=== PATIENT | male | born 1975 | race Hispanic/Latino ===

== ENCOUNTER 2017-01-20 07:32 | Emergency (ER) | payer SELFPAY ==
[~2017-01-20] VITALS: Ht 160 cm; Wt 61.4 kg
[~2017-01-20 07:32] MED LIST: MEDDOSEPAK PO; MOTRIN800 MG PO; NO; SILVADENE1 % EX
[2017-01-20] MEDS ORDERED: GENTAMICIN15 ML/BTL OS (07:52)
[2017-01-20] MEDS ORDERED: (None)3.5 GM OS (07:52)
[2017-01-20 07:58] VITALS: BP 133/87
== END 2017-01-20 08:11 | disposition home or self-care (01) | DRG 125 ==
LOC: ED 07:32
DX: S05.02XA Injury of conjunctiva and corneal abrasion without foreign body, left eye, initial encounter (principal); H10.9 Unspecified conjunctivitis; X58.XXXA Exposure to other specified factors, initial encounter

== ENCOUNTER 2017-09-06 15:06 | Observation (INO) | payer SELFPAY ==
[~2017-09-06] VITALS: Ht 160 cm; Wt 54.2 kg
[~2017-09-06 15:06] MED LIST changes: +(None)3.5 GM OS; +GENTAMICIN15 ML/BTL OS
--- NOTE | 2017-09-06 15:29 | NUR ---
PATIENT TO ROOM VIA EMS AND PHYSICIAN AT BEDSIDE FOR EVAL
[2017-09-06 15:44] LABS: HEMATOCRIT 33.3 % (39.0-50.0); HEMOGLOBIN 11.7 g/dl (14.0-18.0); IMMATURE GRANULOCYTES 0.5 % (0.0-1.0); MEAN CELL VOLUME 95.1 fL CALC (80.0-100.0); MEAN CORPUSCULAR HGB 33.4 pG CALC (26.0-32.0); MEAN CORPUSCULAR HGB CONC 35.1 g/L CALC (32.0-36.0); PLATELET COUNT 123 thou/uL (130-400); RED CELL DISTRI WIDTH 12.1 % (11.5-15.5)
[2017-09-06 15:50] LABS: ALBUMIN 4.1 g/dL (3.2-5.0); ALKALINE PHOSPHATASE 118 u/l (38-126); ANION GAP 23 (6-22 (CALC)); BILIRUBIN, TOTAL 1.2 mg/dL (0.0-1.4); BUN 6 mg/dL (9-20); BUN/CREATININE RATIO 13 (12-20 (CALC)); CALCIUM 8.9 mg/dL (8.4-10.2); CARBON DIOXIDE 19 mmol/l (22-30); CHLORIDE 97 mmol/l (95-108); CREATININE 0.5 mg/dL (0.7-1.3); ETHYL ALCOHOL 48 mg/dl (0-30); GFR > 60 ML/MIN (>=60 (CALC)); GFR FOR AFR.AMER. > 60 ML/MIN (>=60 (CALC)); GLUCOSE 110 mg/dL (75-110); POTASSIUM 2.9 mmol/l (3.5-5.1); SGOT/AST 81 u/l (17-59); SGPT/ALT 64 u/l (21-72); SODIUM 136 mmol/l (137-146); TOTAL PROTEIN 7.5 g/dL (6.3-8.2)
--- NOTE | 2017-09-06 15:57 | NUR ---
PT WITH LABS DRAWN, URINE COLLECTED, NOW WITH IVF AND DILANTIN INFUSING. NO DISTRESS, NO SEIZURE ACTIVITY. PT APPEARS INEBRIATED.
--- NOTE | 2017-09-06 16:08 | NUR ---
FAMILY BROUGHT IN FROM LOBBY. THEY STATE THAT HE DRANK LAST NIGHT, NOT TODAY. HIS BEHAVIOR WAS OFF TODAY, SO CALLED EMS.
[2017-09-06 16:18] LABS: BARBITURATES NEGATIVE (NEGATIVE); COCAINE NEGATIVE (NEGATIVE); METHADONE NEGATIVE (NEGATIVE); OXCYCODONE NEGATIVE (NEGATIVE); TETRAHYDROCANNABIONOL NEGATIVE (NEGATIVE); TRICYLIC ANTIDEPRESSANTS NEGATIVE (NEGATIVE)
[2017-09-06 17:17] LABS: MANUAL DIFFERENTIAL YES
[2017-09-06 17:32] LABS: BAND 18 % (0-8)
--- NOTE | 2017-09-06 17:39 | NUR ---
PT LEAVES AT THIS TIME FOR MARIA ISABEL FOR CT SCAN, SEEN INCONTINENT OF URINE.
--- NOTE | 2017-09-06 20:30 | NUR ---
PT RETURNED FROM [facility]
--- NOTE | 2017-09-06 20:44 | NUR ---
DR STOUT AT BEDSIDE. PT C/O NOT BEING ABLE TO SEE OUT OF L EYE. 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
--- NOTE | 2017-09-06 21:08 | NUR ---
FAMILY RELATED HX OF CHEMICAL EXPOSURE TO L EYE, VISION DIFFICULTY SINCE THAT TIME.
--- NOTE | 2017-09-06 21:20 | NUR ---
REPORT TO [facility]/SURG.
[2017-09-06 21:33] VITALS: BP 107/58
--- NOTE | 2017-09-06 21:33 | NUR ---
PT ARRIVED TO UNIT VIA STRETCHER WITH ER STAFF. STAFF ASSISTED TO BED X 2 PERSON. PT SWAZI SPEAKING ONLY; SIGNIFICANT OTHER AT BEDSIDE ALSO SWAZI SPEAKING ONLY. ANABELA, RN AT BEDSIDE TO INTERPRET. PT IS ALERT AND ORIENTED X 3 WITH FLIGHT OF IDEAS AND IMPULSIVENESS. SO STATES THAT HE RAN AWAY FROM HOME AND WAS FOUND RUNNING AIMLESSLY WHEN FRIEND FOUND HIM AND BROUGHT HIM HOME; PT UNABLE TO EXPLAIN WHY HE WAS RUNNING. SAFETY MEASURES IN PLACE INCLUDIND BED ALARM AND SEIZURE PRECUATIONS. CALL LIGHT SYSTEM REVIEWED AND IN REACH.
--- NOTE | 2017-09-06 21:34 | NUR ---
PT TO RM 270 WITH RN ON TELE.
--- NOTE | 2017-09-07 00:43 | NUR ---
PT RESTLESS IN BED; REMOVED TELE AND SEEMS CONFUSED. LIBRIUM GIVEN AT THIS TIME. SIGNIFICANT OTHER REMAINS WITH PT IS VERY ATTENTIVE TO HIS NEEDS. IV FLUIDS INFUSING WITHOUT DIFFICULTY. SAFETY MEASURES REMAIN IN PLACE.
--- NOTE | 2017-09-07 04:08 | NUR ---
PT ASLEEP AT THIS TIME WITH NO SIGNS OF DISTRESS NOTED. RESPIRATIONS EVEN AND UNLABORED ON ROOM AIR. CONDITION IS STABLE. SAFETY MEASURES REMAIN IN PLACE. CALL LIGHT WITHIN REACH.
[2017-09-07 04:35] VITALS: BP 106/63
[2017-09-07 04:53] LABS: ANION GAP 14 (6-22 (CALC)); BUN 7 mg/dL (9-20); BUN/CREATININE RATIO 15 (12-20 (CALC)); CALCIUM 8.6 mg/dL (8.4-10.2); CARBON DIOXIDE 25 mmol/l (22-30); CREATININE 0.4 mg/dL (0.7-1.3); GFR > 60 ML/MIN (>=60 (CALC)); GFR FOR AFR.AMER. > 60 ML/MIN (>=60 (CALC)); GLUCOSE 110 mg/dL (75-110); POTASSIUM 2.8 mmol/l (3.5-5.1); SODIUM 143 mmol/l (137-146)
[2017-09-07 04:55] LABS: CHLORIDE 107 mmol/l (95-108)
--- NOTE | 2017-09-07 05:45 | NUR ---
BED ALARM SOUNDED AND CALL LIGHT PUT ON BY FAMILY MEMBER. PT FOUND IN BED WITH SIGNIFICANT AMOUNT OF BLOOD ON SELF, FLOOR, AND WALL. IV SITE NOTED TO BE DISLODGED AND BLOOD DRAINING FROM SITE. PRESSURE APPLIED AND BLEEDING STOPPED. PT AT THIS TIME APPEARS VERY CONFUSED; DOES NOT SEEM TO UNDERSTAND THE SITUATION. PT CLEANSED AND HOUSE KEEPING IN TO CLEAN ROOM. NEW IV SITE STARTED AND IV FLUIDS RESTARTED. ATIVAN IV GIVEN FOR THE SECOND TIME THIS SHIFT. PT SEEMS CALMER NOW AND BED ALARM IN PLACE. WILL CONTINUE TO MONITOR.
[2017-09-07 08:08] VITALS: BP 109/68
--- NOTE | 2017-09-07 08:18 | NUR ---
PT.SLEEPING UPON ENTERING ROOM, V/S ASSESSED. AT BEDSIDE EATING BREAKFAST. PT.'S TRAY IS AT BEDSIDE, BUT HE HAS NOT EATEN, OFFERED BREAKFAST BUT APPEARED CONFUSED. LOW GRADE TEMP OF 99.9 OTHERWISE V/S NORMAL. PT.AWAKE TO MY VOICE, BUT BEGAN TO PULL ON BLOOD PRESSURE CUFF IT WAS TAKING HIS B/P. PT.WAS COUGHING MULTIPLE TIMES WHILE I WAS IN THE ROOM, BANANA BAG IS ALMOST COMPLETE.
--- NOTE | 2017-09-07 12:00 | NUR ---
PT.OFF UNIT FLOOR TO 2VXRAY. WILL CONTINUE k+ WHEN PT.RETURNS TO FLOOR.
--- NOTE | 2017-09-07 12:20 | NUR ---
PT.ARRIVED BACK TO FLOOR AND IS IN SHOWER AT THIS TIME.
[2017-09-07 12:41] VITALS: BP 112/79
[2017-09-07 13:35] LABS: INFLUENZA A NONE DETECTED (NONE DETECT); INFLUENZA B NONE DETECTED (NONE DETECT)
[2017-09-07 16:46] VITALS: BP 118/70
--- NOTE | 2017-09-07 16:50 | NUR ---
PT.HAVING SCANT AND SMALL BM'S AND URINATING IN THE BED. HE IS SLEEPING, BUT CAN WAKE AND FOLLOW COMMANDS, BUT REMAINS VERY WEAK AND VERY GROGGY. PT.MEDICATED WITH ANTIBIOTIC THERAPY AND LIBRIUM.
--- NOTE | 2017-09-07 17:59 | NUR ---
FAMILY IN WITH PT.HE IS SITTING UPRIGHT IN BED. HIS GIRLFRIEND FED HIM SUPPER, PT.IS VERY WEAK. HE WAS BARELY ABLE TO LIFT TYLENOL TO HIS MOUTH WHEN MEDICATED. FAMILY INTERPRETED, HE DENIES PAIN OR NAUSEA. POTASSIUM IV IS COMPLETE AT THIS TIME. INSTRUCTED PT.AND FAMILY TO CALL IF ANY NEEDS ARISE
[2017-09-07 19:00] VITALS: BP 118/71
--- NOTE | 2017-09-07 19:20 | NUR ---
REPORT RECEIVED FROM ORLANDO NICOLAS;PT RESTING IN BED WITH AT BEDSIDE;PT IS MOSTLY OF [place] SPEAKING DECENT;POC DISCUSSED WITH IGNACIA CRAWFORD DEPARTMENT SPECIALIST;SEIZURE PRECAUTIONS IN PLACE;PT EDUCATED TO CALL FOR ASSISTANCE IF NEEDED;BED IN THE LOWEST POSITION WITH CALL LIGHT IN REACH;WILL CONTINUE TO MONITOR
--- NOTE | 2017-09-07 22:00 | NUR ---
PT RESTING IN SEMI FOWLERS POSITION WITH AT BEDSIDE;PT VOICES NO COMPLAINTS OF PAIN OR DISCOMFORTS;RESPIRATIONS EVEN AND UNLABORED ON RA;ASSESSMENT COMPLETED;#22G TO RIGHT FOREARM FLUSHED AND PATENT;#20G TO RIGHT WRIST INFUSING NS @ 80ML/HR WELL;SKIN INTACT WITH SWELLING NOTED TO LEFT EYE,SIGNIFICANT OTHER STATES THAT IT IS FROM A CHEMICAL BURN WHICH HAPPENED WHILE THE PT WAS AT WORK;PT A&O X2, PT RE-ORIENTED TO PLACE AND REASON FOR ADMISSION;TEMP RE-CHECK AT 99.1,AC REMAINS LOWERED,BLANKETS REMOVED;TELE MONITOR IN PLACE;PT INCONTINENT AND EDUCATED ON THE NEED FOR A UA SAMPLE TO BE SENT TO LAB;URINAL PLACED AT BEDSIDE AND PT VERBALIZES UNDERSTANDING;SEIZURE PRECAUTIONS REMAIN IN PLACE;PT DENIES ANY OTHER NEEDS;SAFETY PRECAUTIONS REINFORCED WITH CALL LIGHT IN REACH;WILL CONTINUE TO MONITOR
[2017-09-07 23:59] VITALS: BP 120/70
--- NOTE | 2017-09-08 00:40 | NUR ---
PT APPEARS TO BE SLEEPING IN SEMI FOWLERS POSITION;NO S/S OF DISTRESS NOTED;SPOUSE AT BEDSIDE;RESPIRATIONS EVEN AND UNLABORED ON RA;SEIZURE PRECAUTIONS AND TELE MONITOR IN PLACE;IV FLUIDS INFUSING WELL TO LEFT WRIST;FALL PRECAUTIONS IN PLACE WITH CALL LIGHT IN REACH;WILL CONTINUE TO MONITOR
[2017-09-08 02:30] LABS: URINE BILIRUBIN - DIPSTICK NEGATIVE (NEGATIVE); URINE BLOOD DIPSTICK NEGATIVE (NEGATIVE); URINE COLOR YELLOW; URINE GLUCOSE - DIPSTICK NEGATIVE (NEGATIVE); URINE KETONE NEGATIVE (NEGATIVE); URINE LEUK ESTERASE NEGATIVE (NEGATIVE); URINE NITRITE - DIPSTICK NEGATIVE (Negative); URINE PROTEIN - DIPSTICK NEGATIVE (NEG-TRACE)
[2017-09-08 02:37] LABS: URINE CLARITY CLEAR
--- NOTE | 2017-09-08 04:00 | NUR ---
PT RESTING IN BED WITH SPOUSE AT BEDSIDE;VS OBTAINED BY IGNACIA CRAWFORD;PT DENIES ANY PAIN OR DISCOMFORTS;RESPIRATIONS EVEN AND UNLABORED ON RA;CURRENT TEMP 99.9;PT MEDICATED WITH TYLENOL 500MG PO,BLANKETS REMOVED;IV FLUIDS INFUSING WELL TO LEFT WRIST;TELE MONITOR AND SEIZURE PRECAUTIONS IN PLACE;CALL LIGHT IN REACH;WILL CONTINUE TO MONITOR
[2017-09-08 04:43] VITALS: BP 129/67
[2017-09-08 05:41] LABS: HEMATOCRIT 32.8 % (39.0-50.0); HEMOGLOBIN 11.3 g/dl (14.0-18.0); IMMATURE GRANULOCYTES 0.8 % (0.0-1.0); MEAN CELL VOLUME 95.9 fL CALC (80.0-100.0); MEAN CORPUSCULAR HGB CONC 34.5 g/L CALC (32.0-36.0); NEUT# 3.22 thou/uL (1.82-7.42); RED BLOOD COUNT 3.42 mill/uL (4.70-6.10); RED CELL DISTRI WIDTH 12.2 % (11.5-15.5)
[2017-09-08 05:55] LABS: ANION GAP 16 (6-22 (CALC)); BUN 6 mg/dL (9-20); BUN/CREATININE RATIO 15 (12-20 (CALC)); CALCIUM 8.8 mg/dL (8.4-10.2); CARBON DIOXIDE 22 mmol/l (22-30); CHLORIDE 104 mmol/l (95-108); CREATININE 0.4 mg/dL (0.7-1.3); GFR > 60 ML/MIN (>=60 (CALC)); GFR FOR AFR.AMER. > 60 ML/MIN (>=60 (CALC)); GLUCOSE 94 mg/dL (75-110); MAGNESIUM 1.3 mg/dL (1.6-2.3); POTASSIUM 3.4 mmol/l (3.5-5.1); SODIUM 140 mmol/l (137-146)
--- NOTE | 2017-09-08 07:28 | NUR ---
REPORT RECEIVED FROM JULIANA ESCOBAR. PT SITTING UPRIGHT IN BED. DENIES PAIN. REPORTING OF CONCERNS ENCOURAGED. CALL LIGHT REVIEWED AND IN REACH. PT'S AT BEDSIDE. FALL PRECAUTIONS REINFORCED. PT STATES UNDERSTANDING.
[2017-09-08 08:00] VITALS: BP 118/77
--- NOTE | 2017-09-08 09:42 | NUR ---
PT SHOWERED WITH ASSISTANCE OF . TOLERATED ACTIVITY WELL. DENIES PAIN. TREMORS NOTED, UNSTEADY GAIT. FALL PRECAUTIONS REINFORCED. LIBRIUM ADMINISTERED PER ORDER. MERNA FERGUSON IN TO SEE PT NOW.
[2017-09-08 11:13] VITALS: BP 128/66
[2017-09-08] MEDS ORDERED: LIBRIUM25 MG PO (12:20)
[2017-09-08] MEDS ORDERED: AUGMENTIN875TAB PO (12:29)
--- NOTE | 2017-09-08 12:30 | NUR ---
PT ASSISTED TO RESTROOM WITH 1 STAFF ASSIST. PT VEERS TO THE SIDE WHEN WALKING. PT HAD LARGE LOOSE STOOL. FALL PRECAUTIONS REVIEWED. CALL LIGHT WITHIN REACH.
--- NOTE | 2017-09-08 14:33 | NUR ---
Discharge instructions given. Patient verbalizes understanding of same. Discharged in stable condition via Wheelchair to Home with spouse. All belongings sent with pt.
== END 2017-09-08 14:49 | disposition home or self-care (01) | DRG 897 ==
LOC: ED 15:06 → ED-I 20:30 → ED 21:04 → MS2 21:05
PROVIDERS: Emergency Medicine; Nurse Practitioner Family; ADMIT Internal Medicine; ATTEND Internal Medicine
DX: F10.239 Alcohol dependence with withdrawal, unspecified (principal); F10.229 Alcohol dependence with intoxication, unspecified; E83.42 Hypomagnesemia; G40.89 Other seizures; E87.6 Hypokalemia; E86.0 Dehydration; J20.9 Acute bronchitis, unspecified; J02.0 Streptococcal pharyngitis; H54.62 Unqualified visual loss, left eye, normal vision right eye; S05.8X2S Other injuries of left eye and orbit, sequela; X58.XXXS Exposure to other specified factors, sequela; Y90.2 Blood alcohol level of 40-59 mg/100 ml; D64.9 Anemia, unspecified
CPT/HCPCS: G0378; J2060; J3475

== ENCOUNTER 2019-04-04 21:40 | Emergency (ER) | payer SELFPAY ==
[~2019-04-04] VITALS: Ht 160 cm; Wt 70.0 kg
[~2019-04-04 21:40] MED LIST changes: +AUGMENTIN875TAB PO; +LIBRIUM25 MG PO
[2019-04-04] MEDS ORDERED: KEFLEX500 M1 PO (22:15)
[2019-04-04] MEDS ORDERED: VALTREX1 GM PO (22:15)
[2019-04-04 22:48] VITALS: BP 122/81
== END 2019-04-04 22:48 | disposition home or self-care (01) | DRG 159 ==
LOC: ED 21:40
DX: B00.2 Herpesviral gingivostomatitis and pharyngotonsillitis (principal)

== ENCOUNTER 2020-09-04 19:09 | Inpatient (IN) | payer SELFPAY ==
[~2020-09-04] VITALS: Ht 160 cm; Wt 55.5 kg
[~2020-09-04 19:09] MED LIST changes: +KEFLEX500 M1 PO; +VALTREX1 GM PO
--- NOTE | 2020-09-04 19:20 | NUR ---
AMBULATED TO ROOM WITH STEADY GAIT.
--- NOTE | 2020-09-04 19:49 | NUR ---
SPOUSE AT BEDSIDE,PLANOF CARE DISCUSSED.
[2020-09-04 20:09] LABS: HEMATOCRIT 31.3 % (39.0-50.0); HEMOGLOBIN 10.8 g/dl (14.0-18.0); IMMATURE GRANULOCYTES 0.9 % (0.0-5.0); MEAN CELL VOLUME 93.4 fL CALC (80.0-100.0); MEAN CORPUSCULAR HGB 32.2 pG CALC (26.0-32.0); MEAN CORPUSCULAR HGB CONC 34.5 g/dL CAL (32.0-36.0); NEUT# 18.15 thou/uL (1.82-7.42); RED BLOOD COUNT 3.35 mill/uL (4.70-6.10); RED CELL DISTRI WIDTH 13.2 % (11.5-15.5)
[2020-09-04 20:28] LABS: ALKALINE PHOSPHATASE 159 u/l (38-126); BILIRUBIN, TOTAL 1.4 mg/dL (0.0-1.4); BUN 10 mg/dL (9-20); BUN/CREATININE RATIO 19 (12-20 (CALC)); CARBON DIOXIDE 19 mmol/l (22-30); CHLORIDE 104 mmol/l (95-108); CREATININE 0.5 mg/dL (0.7-1.3); GFR > 60 ML/MIN (>=60 (CALC)); GFR FOR AFR.AMER. > 60 ML/MIN (>=60 (CALC)); SGOT/AST 39 u/l (17-59); TOTAL PROTEIN 7.1 g/dL (6.3-8.2)
[2020-09-04 20:29] LABS: AMYLASE 70 u/l (30-110); LIPASE 38 u/l (23-300)
--- NOTE | 2020-09-04 20:30 | NUR ---
PATIENT RERSTING QUIETLY WITH SPOUSE,NO C/O
[2020-09-04 20:31] LABS: INTERNATIONAL NORMALIZED RATIO 1.4 RATIO (0.7-1.3); PROTHROMBIN TIME 13.8 SECONDS (9.0-12.5)
[2020-09-04 20:32] LABS: ANION GAP 12 (6-22 (CALC)); POTASSIUM 4.1 mmol/l (3.5-5.1); SODIUM 131 mmol/l (137-146)
--- NOTE | 2020-09-04 22:04 | NUR ---
physician at bedside too discuss findings
[2020-09-04 22:34] LABS: URINE BILIRUBIN - DIPSTICK NEGATIVE (NEGATIVE); URINE BLOOD DIPSTICK TRACE-INTACT (NEGATIVE); URINE COLOR YELLOW; URINE GLUCOSE - DIPSTICK NEGATIVE (NEGATIVE); URINE KETONE NEGATIVE (NEGATIVE); URINE LEUK ESTERASE NEGATIVE (NEGATIVE); URINE NITRITE - DIPSTICK POSITIVE (Negative); URINE PH 7.5 (4.5-8.0); URINE PROTEIN - DIPSTICK NEGATIVE (NEG-TRACE); URINE SPECIFIC GRAVITY 1.015
[2020-09-04 22:39] LABS: URINE BACTERIA FEW hpf; URINE RBC 0-2 RBC/hpf (0-5)
--- NOTE | 2020-09-04 22:52 | NUR ---
IV ABT. STARTED PER MD ORDER. PT. MADE AWARE OF ADMISSION, IN [place] LANGUAGE OF FAROESE BY ER STAFF.
--- NOTE | 2020-09-04 23:20 | NUR ---
Admission Note Report Given to: ADE PERRY Transported by: Wheelchair X Stretcher Transported with: X Nurse Transporter X Patent IV O2 Print Production Manager Location: ICU X MS2
--- NOTE | 2020-09-04 23:30 | NUR ---
PT. TAKEN TO NC FLOOR VIA STRETCHER, NO C/O.
[2020-09-04 23:32] VITALS: BP 109/64
--- NOTE | 2020-09-04 23:32 | NUR ---
Patient arrived to floor from ER via strecther with nurse at [id number]. Patient alert and oriented, estonian speaking, patient transfered from stretcher to bed. Patient denies any pain, sob, or distress at this time. Patient was oriented to room, Tv, call foley, lights, and bed. Assessment completed, interpreter and translator at bedside to assist with admission. Bed in lowest position, will continue to monitor.
[2020-09-05 04:00] VITALS: BP 110/60
[2020-09-05 05:54] LABS: HEMATOCRIT 30.6 % (39.0-50.0); HEMOGLOBIN 10.3 g/dl (14.0-18.0); IMMATURE GRANULOCYTES 0.8 % (0.0-5.0); MEAN CORPUSCULAR HGB CONC 33.7 g/dL CAL (32.0-36.0); NEUT# 18.61 thou/uL (1.82-7.42); RED BLOOD COUNT 3.22 mill/uL (4.70-6.10); RED CELL DISTRI WIDTH 13.3 % (11.5-15.5)
[2020-09-05 06:16] LABS: ALBUMIN 2.6 g/dL (3.2-5.0); ALKALINE PHOSPHATASE 129 u/l (38-126); ANION GAP 11 (6-22 (CALC)); BILIRUBIN, TOTAL 1.5 mg/dL (0.0-1.4); BUN 10 mg/dL (9-20); BUN/CREATININE RATIO 20 (12-20 (CALC)); CARBON DIOXIDE 20 mmol/l (22-30); CHLORIDE 108 mmol/l (95-108); CREATININE 0.5 mg/dL (0.7-1.3); GFR > 60 ML/MIN (>=60 (CALC)); GFR FOR AFR.AMER. > 60 ML/MIN (>=60 (CALC)); POTASSIUM 4.1 mmol/l (3.5-5.1); SGOT/AST 36 u/l (17-59); SODIUM 135 mmol/l (137-146); TOTAL PROTEIN 6.3 g/dL (6.3-8.2)
[2020-09-05 07:38] VITALS: BP 94/55
--- NOTE | 2020-09-05 08:08 | NUR ---
PT IS ALERT, ORIENTED X 3, RESTS IN THE BED IN NO APPARENT DISTRESS. PT STATES PAIN TO LEFT UPPER QUADRANT. BM TODAY.
--- NOTE | 2020-09-05 12:24 | NUR ---
PT PROVIDED NOON MEAL, EATING NOW. PT IS AMBULATORY IN ROOM TO BR NEEDED. PAIN TO LEFT ABDOMEN IS MINIMAL, NO REQUEST FOR PAIN MEDS.
[2020-09-05 15:05] VITALS: BP 129/66
--- NOTE | 2020-09-05 16:39 | NUR ---
PT GIVEN TORADOL 15 MG FOR FEVER OF 101.4. NO DISTRESS, PT CONTINUES AT REST IN THE BED.
--- NOTE | 2020-09-05 18:25 | NUR ---
RECHECK OF ELEVATED TEMP, NOW 99.2.
[2020-09-05 18:51] VITALS: BP 120/74
--- NOTE | 2020-09-05 20:00 | NUR ---
PATIENT RESTING IN BED AT THIS TIME-AWAKE ALERT AND ORIENTEDX3. PATIENT IS MOSTLY WOL[place] SPEAKING. STATES ONLY SLIGHT LEFT ABD/FLANK PAIN-NO PAIN MEDS AT THIS TIME. IVF NS PATENT AND INFUSING VIA LAC SITE AT 125CC/HR. SITE IS HEALTHY AT THIS TIME. AFEBRILE AT THIS TIME. LUNGS ARE CLEAR. ABD IS SOFT WITH BS PRESENT. PATIENT STATES THAT HE HAS BEEN HAVING DIARRHEA TODAY. DENIES ANY DIFFICULTY WITH URINATION. NO PERIPHERAL EDEMA NOTED AND PULSES ARE PALPABLE. SAFETY PRFECAUTIONS REINFORCED. CALL LIGHT IN REACH. WILL CONT TO MONITOR.
--- NOTE | 2020-09-05 23:10 | NUR ---
PATIENT RESTING IN BED WATCHING TV-PROVIDED WITH RAQUEL. ASUNCION MELO ORDERED. CALL LIGHT IN REACH. WILL CONT TO MONITOR.
[2020-09-06 04:20] VITALS: BP 129/75
--- NOTE | 2020-09-06 04:53 | NUR ---
PATIENT RESTING IN BED-AWAKE AND ALERT. NO COMPLAINTS-STATES NO MORE DIARRHEA THROUGH THE NIGHT. IVF NS PATENT AND INFUSING VIA LAC SITE. SITE REMAINS HEALTHY. TAKING PO FLJUIDS AND TOLERATING WELL. CALL LIGHT IN REACH. WILL CONT TO MONITOR.
[2020-09-06 06:22] LABS: HEMATOCRIT 30.2 % (39.0-50.0); MEAN CELL VOLUME 94.7 fL CALC (80.0-100.0); MEAN CORPUSCULAR HGB 31.3 pG CALC (26.0-32.0); MEAN CORPUSCULAR HGB CONC 33.1 g/dL CAL (32.0-36.0); RED BLOOD COUNT 3.19 mill/uL (4.70-6.10); RED CELL DISTRI WIDTH 13.1 % (11.5-15.5)
[2020-09-06 06:43] LABS: ANION GAP 10 (6-22 (CALC)); BUN 8 mg/dL (9-20); BUN/CREATININE RATIO 18 (12-20 (CALC)); CARBON DIOXIDE 19 mmol/l (22-30); CHLORIDE 107 mmol/l (95-108); CREATININE 0.5 mg/dL (0.7-1.3); GFR > 60 ML/MIN (>=60 (CALC)); GFR FOR AFR.AMER. > 60 ML/MIN (>=60 (CALC)); POTASSIUM 3.8 mmol/l (3.5-5.1); SODIUM 132 mmol/l (137-146)
[2020-09-06 07:17] VITALS: BP 127/70
--- NOTE | 2020-09-06 07:17 | NUR ---
PT LAYING IN BED. A&O X3. NO DISTRESS NOTED. PT REPORTS ABD PAIN TO LUQ RATING 5/10 DESCRIBED "ACHING". #20 LAC WITH SCHEDULED NS @ 125 ML/HR, IV HEALTHY AND PATENT. ASSESSMENT COMPLETED. DISCUSSED POC. CALL LIGHT IN REACH. CONTINUE TO MONITOR.
--- NOTE | 2020-09-06 12:00 | NUR ---
PT SITTING ON THE SIDE OF THE BED EATING LUNCH. REPORTS ABD IS BETTER. CALL LIGHT IN REACH. CONTNUE TO MONITOR.
[2020-09-06 18:44] VITALS: BP 144/83
--- NOTE | 2020-09-06 21:00 | NUR ---
PT MEDICATED ORDERS PROVIDE AND ASSESSMENT COMPLETED AT THIS TIME. PT DENIES ANY PAIN OR DISCOMFORT, DOES REPORT MILD TENDERNESS TO LUQ UPON PALPATION. LUNG SOUNDS ARE CLEAR AT THIS TIME. NO S/O DISTRESS NOTED. DENIES ANY OTHER NEEDS, CALL LIGHT AT SIDE AND PT ENCOURAGED TO CALL NEEDS ARISE.
--- NOTE | 2020-09-06 23:00 | NUR ---
IVF REPLENISHED AT THIS TIME. NO S/O DISTRESS NOTED. DENIES ANY NEEDS. CALL LIGHT AT SIDE.
--- NOTE | 2020-09-07 02:11 | NUR ---
PT APPEARS TO BE SLEEPING, NO S/O DISTRESS NOTED. CALL LIGHT AT SIDE.
[2020-09-07 04:25] VITALS: BP 129/72
--- NOTE | 2020-09-07 04:36 | NUR ---
PT MEDICATED FOR PAIN IN LUQ OF ABD. DENIES ANY OTHER NEEDS AT THIS TIME. ENCOURAGED HIM TO CALL NEEDS ARISE, CALL LIGHT AT SIDE.
[2020-09-07 04:47] LABS: HEMATOCRIT 29.7 % (39.0-50.0); HEMOGLOBIN 10.2 g/dl (14.0-18.0); MEAN CELL VOLUME 92.2 fL CALC (80.0-100.0); MEAN CORPUSCULAR HGB 31.7 pG CALC (26.0-32.0); MEAN CORPUSCULAR HGB CONC 34.3 g/dL CAL (32.0-36.0); RED BLOOD COUNT 3.22 mill/uL (4.70-6.10); RED CELL DISTRI WIDTH 12.6 % (11.5-15.5)
[2020-09-07 05:07] LABS: ALBUMIN 2.6 g/dL (3.2-5.0); ALKALINE PHOSPHATASE 132 u/l (38-126); ANION GAP 11 (6-22 (CALC)); BILIRUBIN, TOTAL 1.2 mg/dL (0.0-1.4); BUN 7 mg/dL (9-20); BUN/CREATININE RATIO 15 (12-20 (CALC)); CARBON DIOXIDE 22 mmol/l (22-30); CHLORIDE 104 mmol/l (95-108); CREATININE 0.5 mg/dL (0.7-1.3); GFR > 60 ML/MIN (>=60 (CALC)); GFR FOR AFR.AMER. > 60 ML/MIN (>=60 (CALC)); MAGNESIUM 1.2 mg/dL (1.6-2.3); POTASSIUM 3.5 mmol/l (3.5-5.1); SGOT/AST 41 u/l (17-59); SODIUM 133 mmol/l (137-146); TOTAL PROTEIN 6.1 g/dL (6.3-8.2)
--- NOTE | 2020-09-07 06:31 | NUR ---
PT WAS SLEEPING I ENTER ROOM AWOKE. DENIES ANY NEEDS. CALL LIGHT AT SIDE.
[2020-09-07 07:35] VITALS: BP 125/73
--- NOTE | 2020-09-07 07:55 | NUR ---
ASSESSMENT IS COMPLETED: IV SITE IS FREE FROM REDNESS OR EDEMA. HR IS REG,PULSES ARE STRONG X4, ABD IS SOFT WITH ACTIVE BS. BREATH SOUNDS ARE CLEAR,BILATERALLY. NO C/O PAIN VOICED.
[2020-09-07 11:36] VITALS: BP 122/62
--- NOTE | 2020-09-07 12:11 | NUR ---
PT IS RELAXING IN BED WITH NO DISTRESS NOTED. IV SITE IS FREE FROM REDNESS OR EDEAM.
--- NOTE | 2020-09-07 14:51 | NUR ---
PT IS RELAXING IN BED WITH NO DISTRESS NOTED. INQUIRED IF ANY PAIN VOICED "NO"
[2020-09-07 15:34] VITALS: BP 121/73
--- NOTE | 2020-09-07 15:48 | NUR ---
PT HAS A SLIGHT FEVER OF 99.9 UNDER THE COVERS. GAVE TORADOL NO C/O PAIN VOICED.
--- NOTE | 2020-09-07 16:00 | NUR ---
PT IS RELAXING IN BED WITH NO DISTRESS NOTED. IV SITE IS FREE FROM REDNESS ORE KARI
[2020-09-07 18:51] VITALS: BP 122/72
--- NOTE | 2020-09-07 21:26 | NUR ---
PT MEDICATED AND ASSESSMENT COMPLETED AT THIS TIME. ANTIBIOTIC THERAPY ADMINISTERED AT THIS TIME, TO 20RAC/SITE APPEARS HEALTHY, PT DENIES ANY PAIN AT IV SITE, ALSO DENIES PAIN TO ABD UPON PALPATION. OFFERED SNACK/DRINK, DENIED NEED AT THIS TIME. ENCOURAGED HIM TO CALL NEEDS ARISE, CALL LIGHT AT SIDE.
--- NOTE | 2020-09-08 01:12 | NUR ---
IVF REPLENISHED AT THIS TIME, PT SLEEPING, NO S/O DISTRESS NOTED AT THIS TIME.
[2020-09-08 04:56] LABS: HEMATOCRIT 28.8 % (39.0-50.0); MEAN CORPUSCULAR HGB 31.9 pG CALC (26.0-32.0); MEAN CORPUSCULAR HGB CONC 34.7 g/dL CAL (32.0-36.0); RED BLOOD COUNT 3.13 mill/uL (4.70-6.10); RED CELL DISTRI WIDTH 12.7 % (11.5-15.5)
[2020-09-08 05:18] VITALS: BP 137/76
[2020-09-08 05:20] LABS: ANION GAP 11 (6-22 (CALC)); BUN 9 mg/dL (9-20); BUN/CREATININE RATIO 18 (12-20 (CALC)); CARBON DIOXIDE 22 mmol/l (22-30); CHLORIDE 104 mmol/l (95-108); CREATININE 0.5 mg/dL (0.7-1.3); GFR > 60 ML/MIN (>=60 (CALC)); GFR FOR AFR.AMER. > 60 ML/MIN (>=60 (CALC)); POTASSIUM 3.8 mmol/l (3.5-5.1); SODIUM 133 mmol/l (137-146)
[2020-09-08 07:37] VITALS: BP 132/72
--- NOTE | 2020-09-08 09:30 | NUR ---
PT IS AWAKE, ALERT, ORIENTED X 3. LUNGS CLEAR,RA. PT DRINKING ORAL CONTRAST FOR CT ABDOMEN THIS MORNING, NO NAUSEA OR VOMITING. PT TEMP 100.0, PROVIDED TORADOL FOR SAME.
--- NOTE | 2020-09-08 13:00 | NUR ---
PT TO CT AND BACK, NO DISTRESS NOTED. PT DENIES DISCOMFORT, AMBULATORY IN ROOM NEEDED.
[2020-09-08 14:49] VITALS: BP 124/72
--- NOTE | 2020-09-08 18:14 | NUR ---
DR CLINTON CONSULTED ON PT, WILL ADD PCR TO LABS. PT WITH DIARRHEA X [address] SCAN READ, NO ACTION YET PER ITS FINDINGS.
[2020-09-08 20:00] VITALS: BP 140/82
--- NOTE | 2020-09-08 23:43 | NUR ---
PATIENT RESTING IN BED AT THIS TIME WITH EYES CLOSED. RESPS ARE EVEN AND UNLABORED. IVF PATENT AND INFUSING VIA RAC SITE ORDERED.CALL LIGHT IN REACH. WILL CONT TO MONITOR.
[2020-09-09 04:00] VITALS: BP 116/65; BP 133/78
--- NOTE | 2020-09-09 04:29 | NUR ---
PATIENT RESTING IN BED WITH NO COMPLAINTS AT THIS TIME. STOOL SPEC OBTAINED AND SENT TO LAB. IVF PATENT AND INFUSING VIA RAC SITE ORDERED. SAFETY PRECAUTIONS REINFORCED. CALL LIGHT IN REACH. WILL CONT TO MONITOR.
[2020-09-09 05:41] LABS: HEMATOCRIT 30.3 % (39.0-50.0); HEMOGLOBIN 10.3 g/dl (14.0-18.0); IMMATURE GRANULOCYTES 0.8 % (0.0-5.0); MEAN CELL VOLUME 92.7 fL CALC (80.0-100.0); MEAN CORPUSCULAR HGB 31.5 pG CALC (26.0-32.0); NEUT# 3.81 thou/uL (1.82-7.42); RED BLOOD COUNT 3.27 mill/uL (4.70-6.10); RED CELL DISTRI WIDTH 12.8 % (11.5-15.5)
[2020-09-09 06:03] LABS: ALBUMIN 2.7 g/dL (3.2-5.0); ALKALINE PHOSPHATASE 129 u/l (38-126); ANION GAP 11 (6-22 (CALC)); BILIRUBIN, TOTAL 0.9 mg/dL (0.0-1.4); BUN 7 mg/dL (9-20); BUN/CREATININE RATIO 15 (12-20 (CALC)); CARBON DIOXIDE 22 mmol/l (22-30); CHLORIDE 104 mmol/l (95-108); CREATININE 0.5 mg/dL (0.7-1.3); GFR > 60 ML/MIN (>=60 (CALC)); GFR FOR AFR.AMER. > 60 ML/MIN (>=60 (CALC)); POTASSIUM 3.9 mmol/l (3.5-5.1); SGOT/AST 39 u/l (17-59); SODIUM 134 mmol/l (137-146); TOTAL PROTEIN 6.4 g/dL (6.3-8.2)
[2020-09-09 07:47] VITALS: BP 106/56
--- NOTE | 2020-09-09 10:17 | NUR ---
PT AT REST IN THE BED, NO DISTRESS. PT AMBULATORY IN ROOM DESIRED. DIARRHEA AGAIN TODAY. LUNGS CLEAR, RA. NO DISTRESS.
--- NOTE | 2020-09-09 13:48 | NUR ---
PT HAS SHOWERED TODAY. PT AMBULATORY NEEDED, NO ACUTE DISTRESS.
[2020-09-09 14:50] VITALS: BP 127/77
--- NOTE | 2020-09-09 16:21 | NUR ---
PT CONTINUES BEFORE, NO CHANGE IN STATUS NOTED. NO COMPLAINT OF ABDOMINAL PAIN.
[2020-09-09 19:30] VITALS: BP 111/69
--- NOTE | 2020-09-09 20:45 | NUR ---
PT IN BED WITH EYES OPEN. ABLE TO VERBALIZE NEEDS. ROMANSH SPEAKING WITH CAPABILITY TO SPEAK SOME PAL[place] AND UNDERSTAND [place]. RESPIRATION ARE EVEN AND NON LABORED. DENIES PAIN OR DISCOMFORT. HEAD OF BED ELEVATED AND CALL LIGHT WITHIN REACH. WILL CONTINUE TO OBSERVE
--- NOTE | 2020-09-10 02:15 | NUR ---
PT IN BED WITH EYES CLOSED. NO S/S OF DISTRESS. MEDICATIONS GIVEN AND TOLERATED WELL. DENIES PAIN OR DISCOMFORT. CONTINUES ON IV ABT WITH NO ADVERSE SIDE EFFECTS NOTED. NACL 0.45 WUNNING AT KVO AND TOLERATING WELL. RESPIRATIONS ARE EVEN AND NON LABORED. CALL LIGHT WITHIN REACH. WILL CONTINUE TO OBSERVE.
[2020-09-10 04:00] VITALS: BP 104/57
--- NOTE | 2020-09-10 05:51 | NUR ---
PT IN BED WITH EYES CLOSED. NO S/S OF DISTRESS NOTED. EASILY AROUSED. cALL LIGHT WITHIN REACH.
[2020-09-10 06:12] LABS: HEMATOCRIT 30.3 % (39.0-50.0); HEMOGLOBIN 10.2 g/dl (14.0-18.0); MEAN CELL VOLUME 93.8 fL CALC (80.0-100.0); MEAN CORPUSCULAR HGB 31.6 pG CALC (26.0-32.0); MEAN CORPUSCULAR HGB CONC 33.7 g/dL CAL (32.0-36.0); RED BLOOD COUNT 3.23 mill/uL (4.70-6.10)
[2020-09-10 06:42] LABS: ANION GAP 11 (6-22 (CALC)); BUN 8 mg/dL (9-20); BUN/CREATININE RATIO 13 (12-20 (CALC)); CARBON DIOXIDE 24 mmol/l (22-30); CHLORIDE 104 mmol/l (95-108); CREATININE 0.6 mg/dL (0.7-1.3); GFR > 60 ML/MIN (>=60 (CALC)); GFR FOR AFR.AMER. > 60 ML/MIN (>=60 (CALC)); MAGNESIUM 1.4 mg/dL (1.6-2.3); POTASSIUM 3.7 mmol/l (3.5-5.1); SODIUM 135 mmol/l (137-146)
[2020-09-10 08:00] VITALS: BP 110/65
--- NOTE | 2020-09-10 09:00 | NUR ---
PT AWAKE, ALERT, ORIENTED X 3. NO COMPLAINT OF ABDOMINAL PAIN. DIARRHEA YESTERDAY.
[2020-09-10] MEDS ORDERED: KEFLEX500 MG PO (11:37)
--- NOTE | 2020-09-10 13:09 | NUR ---
PT HAS BEEN DISCHARGED TO HOME. PT VERBALIZED UNDERSTANDING OF DC INSTRUCTIONS, TAKEN BY WHEELCHAIR TO [facility]ENCH OUTSIDE OF ER. PT LEAVES [facility] IN STABLE CONDITION.
== END 2020-09-10 12:56 | disposition home or self-care (01) | DRG 690 ==
LOC: ED 19:09 → ED-I 22:30 → ED 22:50 → MS2 22:51
PROVIDERS: Nurse Practitioner; ADMIT Internal Medicine; ATTEND Internal Medicine
DX: N10 Acute pyelonephritis (principal); K76.6 Portal hypertension; K70.30 Alcoholic cirrhosis of liver without ascites; F10.20 Alcohol dependence, uncomplicated; R19.7 Diarrhea, unspecified; B96.1 Klebsiella pneumoniae [K. pneumoniae] as the cause of diseases classified elsewhere; Z20.822 Contact with and (suspected) exposure to COVID-19; Z88.6 Allergy status to analgesic agent
CPT/HCPCS: J3475; Q3014; Q9967

== ENCOUNTER 2022-03-14 18:50 | Emergency (ER) | payer SELFPAY ==
[~2022-03-14] VITALS: Ht 160 cm; Wt 57.0 kg
[2022-03-14] VITALS (12 sets, daily range): BP systolic 106–133; BP diastolic 68–89
[~2022-03-14 18:50] MED LIST changes: +KEFLEX500 MG PO
[2022-03-14 20:58] LABS: HEMATOCRIT 30.1 % (39.0-50.0); HEMOGLOBIN 10.7 g/dl (14.0-18.0); IMMATURE GRANULOCYTES 0.2 % (0.0-5.0); MEAN CELL VOLUME 94.4 fL CALC (80.0-100.0); MEAN CORPUSCULAR HGB 33.5 pG CALC (26.0-32.0); MEAN CORPUSCULAR HGB CONC 35.5 g/dL CAL (32.0-36.0); NEUT# 2.53 thou/uL (1.82-7.42); RED BLOOD COUNT 3.19 mill/uL (4.70-6.10)
[2022-03-14 21:01] LABS: ALKALINE PHOSPHATASE 163 u/l (38-126); ANION GAP 13 (6-22 (CALC)); BUN 5 mg/dL (9-20); BUN/CREATININE RATIO 9 (12-20 (CALC)); CARBON DIOXIDE 27 mmol/l (22-30); CHLORIDE 95 mmol/l (95-108); CPK 781 u/l (52-200); CREATININE 0.5 mg/dL (0.7-1.3); ETHYL ALCOHOL 267 mg/dl (0-30); GFR FOR AFR.AMER. > 60 ML/MIN (>=60 (CALC)); GFR OTHER RACES > 60 ML/MIN (>=60 (CALC)); LIPASE 198 u/l (23-300); MAGNESIUM 1.5 mg/dL (1.6-2.3); SODIUM 130 mmol/l (137-146)
[2022-03-14 21:12] LABS: ALBUMIN 3.8 g/dL (3.2-5.0); BILIRUBIN, TOTAL 1.4 mg/dL (0.0-1.4); SGOT/AST 142 u/l (17-59); TOTAL PROTEIN 7.7 g/dL (6.3-8.2)
[2022-03-14 22:53] LABS: URINE BILIRUBIN - DIPSTICK NEGATIVE (NEGATIVE); URINE BLOOD DIPSTICK NEGATIVE (NEGATIVE); URINE COLOR YELLOW; URINE GLUCOSE - DIPSTICK NEGATIVE (NEGATIVE); URINE KETONE NEGATIVE (NEGATIVE); URINE LEUK ESTERASE NEGATIVE (NEGATIVE); URINE PROTEIN - DIPSTICK NEGATIVE (NEG-TRACE); URINE SPECIFIC GRAVITY 1.015; URINE UROBILINOGEN - DIPSTICK 0.2 E.U./dL (0.2)
[2022-03-14 22:54] LABS: URINE NITRITE - DIPSTICK NEGATIVE (Negative)
[2022-03-14] MEDS ORDERED: IMODIUM2 MG PO (23:04)
== END 2022-03-14 23:45 | disposition home or self-care (01) | DRG 392 ==
LOC: ED 18:50
PROVIDERS: Family Medicine
DX: R19.7 Diarrhea, unspecified (principal); F10.229 Alcohol dependence with intoxication, unspecified; G40.909 Epilepsy, unspecified, not intractable, without status epilepticus; Z20.822 Contact with and (suspected) exposure to COVID-19
CPT/HCPCS: Q9967

== ENCOUNTER 2024-11-08 18:13 | Emergency (ER) | payer SELFPAY ==
[~2024-11-08] VITALS: Ht 160 cm; Wt 59.9 kg
[~2024-11-08 18:13] MED LIST changes: +IMODIUM2 MG PO; +METHOCARBAMOL500 MG PO; +NAPROXEN500 MG PO; +PREDNISONE20 MG PO
[2024-11-08 18:22] VITALS: BP 132/87
[2024-11-08 18:30] VITALS: BP 126/79
[2024-11-08] MEDS ORDERED: KETOROLAC TROMETHAMINE 30 MG/ML SDV IV ONE (18:30)
[2024-11-08] MEDS ORDERED: Diph, Acellular Pertussis, Tet 0.5 ML/VIAL (Tdap) SDV IM ONE (18:30)
[2024-11-08 18:37] LABS: EOS% 3.3 % (0-8); HEMATOCRIT 30.4 % (39.0-50.0); HEMOGLOBIN 10.7 g/dl (14.0-18.0); IMMATURE GRANULOCYTES 0.5 % (0.0-5.0); LYMPH% 35.6 % (15-41); MEAN CELL VOLUME 97.7 fL CALC (80.0-100.0); MEAN CORPUSCULAR HGB 34.4 pG CALC (26.0-32.0); MEAN CORPUSCULAR HGB CONC 35.2 g/dL CAL (32.0-36.0); MONO% 11.9 % (2-13); NEUT# 3.75 thou/uL (1.82-7.42); NEUT% 47.7 % (42-76); RED BLOOD COUNT 3.11 mill/uL (4.70-6.10); RED CELL DISTRI WIDTH 13.7 % (11.5-15.5)
[2024-11-08 18:45] VITALS: BP 122/82
[2024-11-08 19:24] LABS: CREATININE 0.7 mg/dL (0.7-1.3); POTASSIUM 4.1 mmol/l (3.5-5.1)
[2024-11-08 19:28] LABS: INTERNATIONAL NORMALIZED RATIO 1.1 RATIO (0.7-1.3)
[2024-11-08 19:29] LABS: PROTHROMBIN TIME 12.1 SECONDS (9.0-12.5)
[2024-11-08 20:01] VITALS: BP 120/82
[2024-11-08 20:03] VITALS: BP 120/82
== END 2024-11-08 20:08 | disposition home or self-care (01) | DRG 156 ==
LOC: ED 18:13
PROVIDERS: Family Medicine
PROC: 0HQ1XZZ Repair Face Skin, External Approach (ICD-10-PCS; principal; 2024-11-08)
DX: S01.21XA Laceration without foreign body of nose, initial encounter (principal); F10.129 Alcohol abuse with intoxication, unspecified; R53.1 Weakness; G40.909 Epilepsy, unspecified, not intractable, without status epilepticus; W01.0XXA Fall on same level from slipping, tripping and stumbling without subsequent striking against object, initial encounter; Z91.81 History of falling
CPT/HCPCS: 90715